=== PATIENT | male | born 1965 | race Caucasian/White ===

== ENCOUNTER → 2024-10-08 09:57 | Outpatient (CLI) | payer OTHER, BC, SELFPAY ==
--- NOTE | 2024-10-08 10:12 | EKG_ITS ---
[place] [id number] [address] [place] [address] Test Date: 2024-10-08 Pat Name: German Cerna Department: Room: Gender: Male Emr Analyst: : 1965 Requested By: Order Number: [id number] Reading MD: Pepe Hart Measurements Intervals [place] Rate: 56 P: 63 TX: 156 QRS: 33 QRSD: 128 T: 60 QT: 454 QTc: 438 Interpretive Statements Sinus bradycardia Right bundle branch block Electronically Signed On 10-09-2024 7:25:33 PDT by Pepe Hart
== END ==
LOC: RESP 10:02
PROVIDERS: Referring Provider Podiatrist; Visit Provider Podiatrist
DX: Z01.818 Encounter for other preprocedural examination (principal)
CPT/HCPCS: 93005